=== PATIENT | female | born 1980 | race Two or more races ===

== ENCOUNTER 2018-09-26 19:37 | Emergency (ER) | payer MEDICAID, OTHER ==
--- NOTE | 2018-09-26 20:01 | EDPHY ---
H & P Time Seen by Provider: 09/26/18 19:46 HPI/ROS: Chief complaint. Headache, dizzy HPI. 38-year-old female left-sided headache for 1 month. Left arm pain for 1 month. It began with a bump on the back of her head that was nontraumatic. She saw her PCP who felt that was normal. However she feels heat on her head and chills at times. Left arm pain that occasionally goes to her chest. No injury. No change with exertion or breathing. Occurs mainly at rest. No fever or shortness of breath. No visual symptoms. ROS 10 systems were reviewed and negative with the exception of the elements mentioned in the history of present illness Past Medical/Surgical History: Cholecystectomy Social History: , nonsmoker, no alcohol Smoking Status: Never smoked Physical Exam: General Appearance: Alert pleasant well-developed female mild distress vital signs stable Eyes: Pupils equal and round no pallor or injection. ENT, no hemotympanum. Tympanic membranes normal. Pharynx normal. No obvious bump or lesion to her scalp Respiratory: There are no retractions, lungs are clear to auscultation. Cardiovascular: Regular rate and rhythm. Gastrointestinal: Abdomen is soft and nontender, no masses, bowel sounds normal. Neurological: Awake and alert, sensory and motor exams grossly normal. Speech is normal. Cranial nerves are normal. [id number] and [id number] are normal. No pronator drift Skin: Warm and dry, no rashes. Musculoskeletal: Neck is supple nontender. Extremities symmetrical, full range of motion. Psychiatric: Patient is oriented X 3, there is no agitation. Constitutional: Initial Vital Signs Temperature (C) 36.7 C 09/26/18 19:39 Heart Rate 74 09/26/18 19:39 Respiratory Rate 16 09/26/18 19:39 Blood Pressure 111/79 09/26/18 19:39 O2 Sat (%) 97 09/26/18 19:39 O2 Delivery Mode Room Air Allergies/Adverse Reactions: No Allergies [NKDA] Allergy (Verified 09/26/18 19:43) Home Medications: Medication Instructions Recorded Ibuprofen 09/26/18 Medical Decision Making - Diagnostics EKG Interpretation: EKG interpreted by me is normal Imaging Results: Imaging Impressions Head CT 09/26/18 20:01 Impression: Normal CT of the head. Specifically, a headache source is not identified. Results called and discussed with NANCY GRIFIFTH M.D. on 09/26/2018 at 20:59. Noncontrast head CT reviewed by me and discussed with Dr. Coleman is normal Procedures: Toradol IV ED Course/Re-evaluation: Re-evaluation 10:10 p.m. Patient is feeling much better. Patient and I discussed imaging lab EKG findings. We discussed treatment plan including criteria for return importance of follow-up further evaluation. She expresses understanding and agreement Differential Diagnosis: I considered intracranial bleeding, acute coronary syndrome. This could be musculoskeletal in etiology - Data Points Laboratory Results: Laboratory Results 09/26/18 21:18 09/26/18 21:18 09/26/18 09/26/18 09/26/18 21:18 21:18 21:18 WBC 6.30 10^3/uL 10^3/uL (3.80-9.50) RBC 4.74 10^6/uL 10^6/uL (4.18-5.33) Hgb 9.9 g/dL L g/dL (12.6-16.3) Hct 33.2 % L % (38.0-47.0) MCV 70.0 fL L fL (81.5-99.8) MCH 20.9 pg L pg (27.9-34.1) MCHC 29.8 g/dL L g/dL (32.4-36.7) RDW 23.9 % H % (11.5-15.2) Plt Count 322 10^3/uL 10^3/uL (150-400) MPV 9.8 fL fL (8.7-11.7) Neut % (Auto) 39.8 % % (39.3-74.2) Lymph % (Auto) 45.4 % H % (15.0-45.0) Becker % (Auto) 11.4 % % (4.5-13.0) Eos % (Auto) 2.1 % % (0.6-7.6) Baso % (Auto) 1.1 % % (0.3-1.7) Nucleat RBC Rel Count 0.0 % % (0.0-0.2) Absolute Neuts (auto) 2.51 10^3/uL 10^3/uL (1.70-6.50) Absolute Lymphs (auto) 2.86 10^3/uL 10^3/uL (1.00-3.00) Absolute Monos (auto) 0.72 10^3/uL 10^3/uL (0.30-0.80) Absolute Eos (auto) 0.13 10^3/uL 10^3/uL (0.03-0.40) Absolute Basos (auto) 0.07 10^3/uL 10^3/uL (0.02-0.10) Absolute Nucleated RBC 0.00 10^3/uL 10^3/uL (0-0.01) Immature Gran % 0.2 % % (0.0-1.1) Immature Gran # 0.01 10^3/uL 10^3/uL (0.00-0.10) Platelet Estimate ADEQUATE (ADEQ) Hypochromasia 2+ H Microcytic Cells 2+ H Tear Drop Cells 1+ H Sodium 139 mEq/L mEq/L (135-145) Potassium 3.6 mEq/L mEq/L (3.5-5.2) Chloride 107 mEq/L mEq/L (97-110) Carbon Dioxide 23 mEq/l mEq/l (22-31) Anion Gap 9 mEq/L mEq/L (6-14) BUN 18 mg/dL mg/dL (7-23) Creatinine 0.5 mg/dL L mg/dL (0.6-1.0) Estimated GFR > 60 Glucose 101 mg/dL H mg/dL (70-100) Calcium 8.7 mg/dL mg/dL (8.5-10.4) Beta HCG, Qual NEGATIVE Medications Given: Discontinued Medications Sodium Chloride (Ns) 1,000 mls @ 0 mls/hr IV ONCE ONE; Wide Open PRN Reason: Protocol Stop: 09/26/18 21:13 Last Admin: 09/26/18 21:12 Dose: 1,000 mls Ketorolac Tromethamine (Toradol) 30 mg IVP EDNOW ONE Stop: 09/26/18 21:06 Last Admin: 09/26/18 21:13 Dose: 30 mg Departure - Departure Disposition: Home, Routine, Self-Care Clinical Impression: Headache Qualifiers: Headache type: unspecified Headache chronicity pattern: chronic headache Intractability: not intractable Qualified Code(s): R51 - Headache Condition: Good Instructions: Acute Headache (ED) Additional Instructions: Ibuprofen 600 mg every 6 hr, Tylenol 1000 mg every 6 hr as needed for headache and pain Return for worsening symptoms Re-evaluation at [facility] in 2-3 days if not improved Referrals: NONE *PRIMARY CARE P,. [Primary Care Provider] - As per Instructions [facility] [Outside] - 2-3 days, if not improved
[2018-09-26] MEDS ORDERED: KETOROLAC 30 MG/1 ML SDV IVP ONE (21:05)
[2018-09-26] MEDS ORDERED: NS 1,000 ML IV ONE (21:12)
[2018-09-26 21:26] LABS: PLATELET COUNT 322 10^3/uL (150-400)
[2018-09-26 22:57] VITALS: BP 126/74
--- NOTE | 2018-09-27 23:40 | CPEKG ---
Test Reason : OPEN Blood Pressure : / mmHG Vent. Rate : 070 BPM Atrial Rate : 070 BPM P-R Int : 142 ms QRS Dur : 096 ms QT Int : 397 ms P-R-T Axes : 031 027 023 degrees QTc Int : 429 ms Sinus rhythm Confirmed by Maximiliano Guerra ([id number]) on 09/27/2018 11:40:10 PM Referred By: Maximiliano Guerra Confirmed By:Maximiliano Guerra
== END 2018-09-26 22:50 | disposition home or self-care (01) ==
DX: R51 Headache (principal)
CPT/HCPCS: 96374; J1885